=== PATIENT | female | born 2005 | race Two or more races ===

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

== ENCOUNTER 2024-04-14 14:51 | Emergency (ER) | payer OTHER ==
[~2024-04-14] VITALS: Ht 152.4 cm; Wt 99.8 kg
[~2024-04-14 14:51] MED LIST changes: +DUI500 PO
[2024-04-14] MEDS ORDERED: KETOROLAC TROMETHAMINE 30 MG VIAL IM STA (15:39)
[2024-04-14 16:06] LABS: HEMATOCRIT 40.9 % (36.0-45.00); HEMOGLOBIN 13.9 g/dL (12.0-15.00); MEAN CELL VOLUME 72.4 fL (80.00-100.00); MEAN CORPUSCULAR HEMOGLOBIN 24.7 pg (27.00-32.0); MEAN CORPUSCULAR HGB CONC 34.1 g/dl (32.0-36.0); PLATELET COUNT 364 K/uL (150-450); RED BLOOD COUNT 5.66 M/uL (4.00-6.00); RED CELL DISTRIBUTION WIDTH 18.1 % (11.5-14.5)
[2024-04-14 16:26] LABS: ALBUMIN 3.5 gm/dL (3.4-5.0); BILIRUBIN TOTAL 0.28 mg/dL (0.3-1.2); CALCIUM 8.7 mg/dL (8.5-10.1); CREATININE SERUM 0.82 mg/dL (0.55-1.02); GFR 88.88; GLOBULINA 4.5 G/DL (2.4-3.5); POTASSIUM 3.53 mEq/L (3.5-5.1)
== END 2024-04-14 17:57 | disposition home or self-care (01) ==
LOC: ER 14:53 → EMR PED 15:16 → ER 15:16 → EMR PED 17:57
DX: M54.89 Other dorsalgia (principal); Z88.8 Allergy status to other drugs, medicaments and biological substances; Z91.013 Allergy to seafood

== ENCOUNTER 2024-04-25 04:24 | Emergency (ER) | payer OTHER ==
[~2024-04-25] VITALS: Ht 152.4 cm; Wt 99.8 kg
[2024-04-25] MEDS ORDERED: GUAIFENESIN 200 MG/10 ML BLIST.PACK PO STA (05:24)
[2024-04-25] MEDS ORDERED: DIPHENHYDRAMINE HCL 12.5 MG/5 ML BLIST.PACK PO STA (05:24)
[2024-04-25] MEDS ORDERED: ACETAMINOPHEN 500 MG GEL..CAP PO STA (05:24)
[2024-04-25] MEDS ORDERED: ALBUTEROL SULFATE 3 ML/2.5 MG AMPUL.NEB IH SCH (05:30)
[2024-04-25 07:07] LABS: HEMATOCRIT 37.7 % (36.0-45.00); MEAN CELL VOLUME 72.5 fL (80.00-100.00); MEAN CORPUSCULAR HEMOGLOBIN 25.1 pg (27.00-32.0); MEAN CORPUSCULAR HGB CONC 34.6 g/dl (32.0-36.0); PLATELET COUNT 356 K/uL (150-450); RED CELL DISTRIBUTION WIDTH 18.8 % (11.5-14.5)
[2024-04-25] MEDS ORDERED: AMOX-CLAV 875-1 EACH PO (09:41)
[2024-04-25 10:11] VITALS: BP 110/64; O2SAT 96
== END 2024-04-25 10:13 | disposition home or self-care (01) ==
LOC: ER 04:26 → EMR PED 04:33 → ER 04:33 → EMR PED 10:13
PROVIDERS: General Practice
DX: J32.9 Chronic sinusitis, unspecified (principal); Z20.822 Contact with and (suspected) exposure to COVID-19; Z88.8 Allergy status to other drugs, medicaments and biological substances; Z91.013 Allergy to seafood

== ENCOUNTER → 2024-07-09 | Emergency (ER) | payer OTHER ==
[~2024-07-09] VITALS: Ht 152.4 cm; Wt 99.8 kg
[~2024-07-09] MED LIST changes: +AMOX-CLAV 875-1 EACH PO; +CEFTRIAXONE SODIUM 1,000 MG VIAL IV STA; +CEFTRIAXONE SODIUM 1,000 MG VIAL ONE; +CEPHALEXIN500 MG PO; +DEXTROSE 5 %-0.45 % SOD CHLORD 1,000 ML IV STA; +FAMOTIDINE/PF 20 MG/2 ML VIAL ONE; +FAMOtidine 10 MG/ML (4ML VIAL) IV STA; +KETOROLAC TROMETHAMINE 30 MG VIAL IV STA; +KETOROLAC TROMETHAMINE 60 MG VIAL IM ONE; +ONDANSETRON HCL 2 MG/ML VIAL IV STA; +ONDANSETRON HCL 2 MG/ML VIAL ONE; +PYRIDIUM DS200 MG PO
[2024-07-09 19:17] VITALS: BP 117/73; O2SAT 99
[2024-07-09 20:59] LABS: HEMATOCRIT 39.1 % (36.0-45.00); HEMOGLOBIN 13.2 g/dL (12.0-15.00); MEAN CELL VOLUME 74.3 fL (80.00-100.00); MEAN CORPUSCULAR HEMOGLOBIN 25.1 pg (27.00-32.0); MEAN CORPUSCULAR HGB CONC 33.8 g/dl (32.0-36.0); PLATELET COUNT 398 K/uL (150-450); RED BLOOD COUNT 5.26 M/uL (4.00-6.00); RED CELL DISTRIBUTION WIDTH 15.8 % (11.5-14.5)
[2024-07-09 21:03] LABS: ALBUMIN 3.4 gm/dL (3.4-5.0); BILIRUBIN TOTAL 0.34 mg/dL (0.3-1.2); CALCIUM 9.3 mg/dL (8.5-10.1); CREATININE SERUM 0.54 mg/dL (0.55-1.02); GFR 143.93; GLOBULINA 4.6 G/DL (2.4-3.5); POTASSIUM 4.17 mEq/L (3.5-5.1)
[2024-07-10 00:51] LABS: PH,URINE 6.5 (5.0-8.0); URINE APPEARANCE Cloudy; URINE BILIRRUBIN Negative (NEGATIVE); URINE BLOOD Negative; URINE COLOR Yellow; URINE GLUCOSE Negative (NEGATIVE); URINE KETONE Negative (NEGATIVE); URINE LEUKOCYTE Moderate; URINE NITRATE Negative; URINE PROTEIN Negative (NEGATIVE)
[2024-07-10 00:55] LABS: URINE BACTERIA 7614.4 uL (0.0-1933); URINE EPITHELIAL CELLS 124.5 uL (0.0-38.8); URINE RBC 24.8 uL (0.0-20.8); URINE WBC 107.9 uL (0.0-23.2)
[2024-07-10 01:17] LABS: URINE CAST 0.58 uL (0.0-1.40)
== END | disposition home or self-care (01) ==
LOC: EMR PED 19:02 → ER 19:02 → EMR PED 19:25
DX: N39.0 Urinary tract infection, site not specified (principal); Z91.013 Allergy to seafood; Z88.8 Allergy status to other drugs, medicaments and biological substances
CPT/HCPCS: 36415; 76770; 76856; 96365; 96366; 99284; J0696; J2405; J3490; J7070

== ENCOUNTER 2024-07-15 06:07 | Inpatient (IN) | payer OTHER ==
[~2024-07-15] VITALS: Ht 157.5 cm; Wt 100.0 kg
[~2024-07-15 06:07] MED LIST changes: -CEFTRIAXONE SODIUM 1,000 MG VIAL IV STA; -CEFTRIAXONE SODIUM 1,000 MG VIAL ONE; -DEXTROSE 5 %-0.45 % SOD CHLORD 1,000 ML IV STA; -FAMOTIDINE/PF 20 MG/2 ML VIAL ONE; -FAMOtidine 10 MG/ML (4ML VIAL) IV STA; -KETOROLAC TROMETHAMINE 30 MG VIAL IV STA; -KETOROLAC TROMETHAMINE 60 MG VIAL IM ONE; -ONDANSETRON HCL 2 MG/ML VIAL IV STA; -ONDANSETRON HCL 2 MG/ML VIAL ONE
--- NOTE | 2024-07-15 06:25 | NUR ---
PACIENTE ALERTA Y ORIENTADA X 3. REFIERE DESDE AMANDA DOLOR ABDOMINAL, VOMITOS Y DIARREAS. HOY DIARREAS X 5 Y VOMITOS X 6.
[2024-07-15] MEDS ORDERED: ONDANSETRON HCL 2 MG/ML VIAL IV ONE (07:30)
[2024-07-15] MEDS ORDERED: FAMOTIDINE/PF 20 MG/2 ML VIAL IV ONE (07:30)
[2024-07-15] MEDS ORDERED: 0.9 % SODIUM CHLORIDE 500 ML IV ONE (07:30)
[2024-07-15] MEDS ORDERED: ONDANSETRON HCL 2 MG/ML VIAL ONE ×2 (07:59→18:30)
[2024-07-15] MEDS ORDERED: FAMOTIDINE/PF 20 MG/2 ML VIAL ONE ×2 (08:00→18:31)
[2024-07-15 09:00] LABS: HEMATOCRIT 38.2 % (36.0-45.00); HEMOGLOBIN 12.7 g/dL (12.0-15.00); MEAN CELL VOLUME 74.6 fL (80.00-100.00); MEAN CORPUSCULAR HEMOGLOBIN 24.8 pg (27.00-32.0); MEAN CORPUSCULAR HGB CONC 33.3 g/dl (32.0-36.0); PLATELET COUNT 397 K/uL (150-450); RED BLOOD COUNT 5.12 M/uL (4.00-6.00); RED CELL DISTRIBUTION WIDTH 15.4 % (11.5-14.5)
[2024-07-15] MEDS ORDERED: DEXTROSE 5 %-0.45 % SOD CHLORD 1,000 ML IV SCH (09:00)
--- NOTE | 2024-07-15 09:12 | NUR ---
EVALUADA PTE. POR DRA.D. ANNA. SE ORIENTA SOBRE TRATAMIENTO Y MEDICAMENTOS LOS CUALES SE ADM. MAGED ORDEN MEDICA, MUESTRAS TOMADAS Y SE ENVIAN AL LABORATORIO Y SE ZIA PTE. EN GRANT CON BARRANDAS ELEVADAS ACOMPANADA DE FAMILIAR.
[2024-07-15 09:21] LABS: URINE APPEARANCE Clear; URINE BILIRRUBIN Negative (NEGATIVE); URINE BLOOD Small; URINE COLOR Dark Yellow; URINE GLUCOSE Negative (NEGATIVE); URINE KETONE Negative (NEGATIVE); URINE LEUKOCYTE Negative; URINE NITRATE Negative; URINE PROTEIN Negative (NEGATIVE)
[2024-07-15 09:26] LABS: URINE BACTERIA 4063.1 uL (0.0-1933); URINE EPITHELIAL CELLS 84.2 uL (0.0-38.8); URINE RBC 15.7 uL (0.0-20.8); URINE WBC 76.1 uL (0.0-23.2)
[2024-07-15 09:29] LABS: URINE CAST 0.14 uL (0.0-1.40)
[2024-07-15] MEDS ORDERED: CEFTRIAXONE SODIUM 1,000 MG VIAL IV ONE (10:00)
[2024-07-15 10:15] LABS: ALBUMIN 3.1 gm/dL (3.4-5.0); BILIRUBIN TOTAL 0.26 mg/dL (0.3-1.2); CALCIUM 8.7 mg/dL (8.5-10.1); CREATININE SERUM 0.63 mg/dL (0.55-1.02); GFR 120.47; GLOBULINA 4.1 G/DL (2.4-3.5); POTASSIUM 4.11 mEq/L (3.5-5.1); TOTAL PROTEIN 7.2 gm/dL (6.4-8.2)
[2024-07-15] MEDS ORDERED: CEFTRIAXONE SODIUM 1,000 MG VIAL ONE (10:41)
--- NOTE | 2024-07-15 10:48 | NUR ---
DRA. ANNA RE-EVALUA PTE. MEDICAMENTOS ADM. MAGED ORDEN MEDICA Y SE ORIENTA A COGER U/C.
--- NOTE | 2024-07-15 15:20 | NUR ---
PTE ALERTA Y ORIENTADA X 3 ESFERAS SIN ACOMPANANTE AL MOMENTO DE LA VIOLA,EN GRANT CON BARANDAS ELEVADAS QUIEN PRESENTA VOMITOS LUEGO DE PO TRIAL.AREA DE VENOPUNCION PATENTE Y NORBERTO DE EDEMA CON FLUIDOS DE MANTENIMIENTO.
[2024-07-15] MEDS ORDERED: PROMETHAZINE HCL 50 MG/ML AMPUL IM ONE ×2 (16:30→16:33)
[2024-07-15] MEDS ORDERED: FAMOTIDINE/PF 20 MG/2 ML VIAL IV SCH (17:53)
[2024-07-15] MEDS ORDERED: CEFTRIAXONE SODIUM 1,000 MG VIAL IV SCH (17:54)
[2024-07-15] MEDS ORDERED: ONDANSETRON HCL 2 MG/ML VIAL IV SCH (17:55)
--- NOTE | 2024-07-15 17:55 | NUR ---
LUEGO DEL JAIME PO TRIAL PTE VOMITA NUEVAMENTE.
[2024-07-15 20:37] VITALS: BP 140/80
[2024-07-15 22:05] VITALS: BP 94/62; O2SAT 98
[2024-07-15 23:55] VITALS: BP 104/62; O2SAT 97
[2024-07-16 07:30] VITALS: BP 93/59; O2SAT 99
[2024-07-16] MEDS ORDERED: CEFTRIAXONE SODIUM 1,000 MG VIAL IV SCH (09:00)
[2024-07-16 16:54] VITALS: BP 117/70; O2SAT 100
[2024-07-17 00:44] VITALS: BP 93/58; O2SAT 99
[2024-07-17 06:38] LABS: HEMATOCRIT 37.5 % (36.0-45.00); HEMOGLOBIN 12.6 g/dL (12.0-15.00); MEAN CELL VOLUME 75.1 fL (80.00-100.00); MEAN CORPUSCULAR HEMOGLOBIN 25.3 pg (27.00-32.0); MEAN CORPUSCULAR HGB CONC 33.6 g/dl (32.0-36.0); PLATELET COUNT 342 K/uL (150-450); RED BLOOD COUNT 4.99 M/uL (4.00-6.00); RED CELL DISTRIBUTION WIDTH 14.9 % (11.5-14.5)
[2024-07-17 07:29] LABS: BILIRUBIN TOTAL 0.33 mg/dL (0.3-1.2); CALCIUM 8.6 mg/dL (8.5-10.1); CREATININE SERUM 0.64 mg/dL (0.55-1.02); GFR 118.3; GLOBULINA 3.5 G/DL (2.4-3.5); POTASSIUM 4.15 mEq/L (3.5-5.1); TOTAL PROTEIN 6.5 gm/dL (6.4-8.2)
[2024-07-17 07:38] LABS: C-REACTIVE PROTEIN 2.09 MG/DL (0.00-0.29)
[2024-07-17] MEDS ORDERED: PANTOPRAZOLE SODIUM 40 MG/VIAL VIAL IV SCH (09:00)
[2024-07-17 13:01] VITALS: BP 91/69; O2SAT 97
[2024-07-17 16:00] VITALS: BP 103/69; O2SAT 100
[2024-07-18] VITALS: BP 109/55; O2SAT 100
[2024-07-18 11:25] VITALS: BP 107/75; O2SAT 99
[2024-07-18 13:24] LABS: AMYLASE 58 U/L (25-115); LIPASE 37 U/L (13-75)
[2024-07-18 15:30] VITALS: BP 119/70; O2SAT 99
[2024-07-18] MEDS ORDERED: FAMOTIDINE/PF 20 MG/2 ML VIAL IV SCH (17:00)
[2024-07-18] MEDS ORDERED: POLYETHYLENE GLYCOL 3350 17 GM BLIST.PACK PO SCH (21:00)
[2024-07-19] VITALS: BP 116/74; O2SAT 100
[2024-07-19 08:00] VITALS: BP 108/73; O2SAT 100
[2024-07-19 16:00] VITALS: BP 93/51; O2SAT 100
[2024-07-19] MEDS ORDERED: POLYETHYLENE GLYCOL 3350 17 GM BLIST.PACK PO SCH (17:00)
[2024-07-19] MEDS ORDERED: CEFTRIAXONE SODIUM 1,000 MG VIAL IM SCH (21:00)
[2024-07-19] MEDS ORDERED: LIDOCAINE HCL 1% 10ML VIAL IJ ONE (21:00)
[2024-07-20 00:30] VITALS: BP 105/71; O2SAT 100
[2024-07-20] MEDS ORDERED: ACID CONTROLLER20 MG PO (08:28)
[2024-07-20] MEDS ORDERED: PROTONIX40 MG PO (08:29)
== END 2024-07-20 09:01 | disposition home or self-care (01) | DRG 690 ==
LOC: ER 06:10 → EMR PED 06:23 → PED 19:52
PROVIDERS: Emergency Medicine Pediatric Emergency Medicine; ADMIT Emergency Medicine; ATTEND Emergency Medicine
PROC: BW40ZZZ Ultrasonography of Abdomen (ICD-10-PCS; principal; 2024-07-17)
DX: N39.0 Urinary tract infection, site not specified (principal); K29.70 Gastritis, unspecified, without bleeding; K80.20 Calculus of gallbladder without cholecystitis without obstruction; R11.2 Nausea with vomiting, unspecified

== ENCOUNTER 2024-09-06 16:56 | Emergency (ER) | payer OTHER ==
[~2024-09-06] VITALS: Ht 152.4 cm; Wt 101.6 kg
[~2024-09-06 16:56] MED LIST changes: +ACID CONTROLLER20 MG PO; +PROTONIX40 MG PO
[2024-09-06] MEDS ORDERED: FAMOtidine 20 MG TABLET PO STA (17:19)
[2024-09-06] MEDS ORDERED: ONDANSETRON HCL 2 MG/ML VIAL IV STA (17:20)
[2024-09-06] MEDS ORDERED: 0.9 % SODIUM CHLORIDE 1,000 ML IV SCH (17:30)
[2024-09-06 18:44] LABS: HEMATOCRIT 43.1 % (36.0-45.00); HEMOGLOBIN 14.7 g/dL (12.0-15.00); MEAN CELL VOLUME 72.3 fL (80.00-100.00); MEAN CORPUSCULAR HEMOGLOBIN 24.7 pg (27.00-32.0); MEAN CORPUSCULAR HGB CONC 34.1 g/dl (32.0-36.0); PLATELET COUNT 383 K/uL (150-450); RED BLOOD COUNT 5.96 M/uL (4.00-6.00); RED CELL DISTRIBUTION WIDTH 16.7 % (11.5-14.5)
[2024-09-06 19:11] LABS: ALBUMIN 3.8 gm/dL (3.4-5.0); BILIRUBIN TOTAL 0.87 mg/dL (0.3-1.2); CALCIUM 9.3 mg/dL (8.5-10.1); CREATININE SERUM 0.68 mg/dL (0.55-1.02); GFR 110.31; GLOBULINA 4.9 G/DL (2.4-3.5); POTASSIUM 4.1 mEq/L (3.5-5.1); TOTAL PROTEIN 8.7 gm/dL (6.4-8.2)
[2024-09-06 23:26] LABS: PH,URINE 5.5 (5.0-8.0); URINE APPEARANCE Turbid; URINE BILIRRUBIN Small (NEGATIVE); URINE BLOOD Negative; URINE COLOR Orange; URINE GLUCOSE Negative (NEGATIVE); URINE KETONE Trace (NEGATIVE); URINE LEUKOCYTE Trace; URINE NITRATE Negative; URINE PROTEIN Trace (NEGATIVE)
[2024-09-06 23:31] LABS: URINE BACTERIA 3127.3 uL (0.0-1933); URINE EPITHELIAL CELLS 43.2 uL (0.0-38.8); URINE RBC 20.3 uL (0.0-20.8); URINE WBC 19.7 uL (0.0-23.2)
[2024-09-06 23:44] LABS: URINE CAST 0.44 uL (0.0-1.40); URINE CRYSTALS MANY /HPF
== END 2024-09-07 02:45 | disposition home or self-care (01) ==
LOC: ER 16:59 → EMR PED 17:08
DX: K52.89 Other specified noninfective gastroenteritis and colitis (principal); Z20.822 Contact with and (suspected) exposure to COVID-19; Z88.8 Allergy status to other drugs, medicaments and biological substances; Z91.013 Allergy to seafood

== ENCOUNTER → 2025-04-06 | Emergency (ER) | payer OTHER ==
[~2025-04-06] VITALS: Ht 152.4 cm; Wt 99.8 kg
[~2025-04-06] MED LIST changes: +0.9 % SODIUM CHLORIDE 500 ML IV ONE; +CEFTRIAXONE SODIUM 1,000 MG VIAL IM ONE; +CEFTRIAXONE SODIUM 1,000 MG VIAL ONE; +CIPRO500 MG PO; +DOLOGEN 325-11 EACH PO; +FAMOTIDINE/PF 20 MG/2 ML VIAL IV ONE; +FAMOTIDINE/PF 20 MG/2 ML VIAL ONE; +KETOROLAC TROMETHAMINE 30 MG VIAL IV ONE; +KETOROLAC TROMETHAMINE 30 MG VIAL ONE; +ONDANSETRON HCL 2 MG/ML VIAL IV ONE; +ONDANSETRON HCL 2 MG/ML VIAL ONE; +URETRON D-S TAB1 TAB PO
[2025-04-06 23:31] LABS: BASO % 0.5 % (0.1-1.2); EOS # 0.17 (0.04-0.54); EOS % 1.1 % (0.7-7.0); LYMPH # 3.79 (1.18-3.74); LYMPH % 25.1 % (19.3-53.1); MEAN PLATELET VOLUME 10.50 fl (9.4-12.4); MONO # 0.56 (0.24-0.82); MONO % 3.7 % (4.7-12.5); NEUT # 10.46 (1.56-6.13); NEUT % 69.3 % (34.0-71.1); RED CELL DISTRIBUTION WIDTH 15.8 % (11.6-14.4)
[2025-04-06 23:45] LABS: ERYTHROCYTE SEDIMENTATION RATE 30 mm/hr (0-20)
[2025-04-06 23:51] LABS: BUN CREA RATIO 16.0 (7.0-25.0); CREATININE SERUM 0.61 mg/dL (0.55-1.02); GFR 123.81; GLUCOSE FASTING 93.0 mg/dL (65-100); OSMOLALITY SERUM 278.0 MOSM/KG (275-295)
[2025-04-07 00:44] LABS: URINE APPEARANCE Clear; URINE BILIRRUBIN Negative (NEGATIVE); URINE BLOOD Negative; URINE COLOR Yellow; URINE GLUCOSE Negative (NEGATIVE); URINE KETONE Negative (NEGATIVE); URINE LEUKOCYTE Small; URINE NITRATE Negative; URINE PROTEIN Negative (NEGATIVE); URINE UROBILINOGEN 1.0 E.U./dl
[2025-04-07 00:50] LABS: URINE BACTERIA 2582.2 uL (0.0-1933); URINE EPITHELIAL CELLS 66.1 uL (0.0-38.8); URINE RBC 7.0 uL (0.0-20.8); URINE WBC 203.0 uL (0.0-23.2)
[2025-04-07 01:06] LABS: URINE CAST 0.00 uL (0.0-1.40)
== END | disposition home or self-care (01) ==
LOC: ER 17:57
DX: N39.0 Urinary tract infection, site not specified (principal); R10.9 Unspecified abdominal pain; Z88.8 Allergy status to other drugs, medicaments and biological substances; Z91.013 Allergy to seafood

== ENCOUNTER 2025-04-30 09:26 | Emergency (ER) | payer OTHER ==
[~2025-04-30] VITALS: Ht 162.6 cm; Wt 90.7 kg
[~2025-04-30 09:26] MED LIST changes: -0.9 % SODIUM CHLORIDE 500 ML IV ONE; -CEFTRIAXONE SODIUM 1,000 MG VIAL IM ONE; -CEFTRIAXONE SODIUM 1,000 MG VIAL ONE; -FAMOTIDINE/PF 20 MG/2 ML VIAL IV ONE; -FAMOTIDINE/PF 20 MG/2 ML VIAL ONE; -KETOROLAC TROMETHAMINE 30 MG VIAL IV ONE; -KETOROLAC TROMETHAMINE 30 MG VIAL ONE; -ONDANSETRON HCL 2 MG/ML VIAL IV ONE; -ONDANSETRON HCL 2 MG/ML VIAL ONE
[2025-04-30] MEDS ORDERED: ONDANSETRON HCL 2 MG/ML VIAL IV STA ×2 (09:42→14:39)
[2025-04-30] MEDS ORDERED: FAMOTIDINE/PF 20 MG/2 ML VIAL IV PUSH STA (09:42)
[2025-04-30] MEDS ORDERED: MORPHINE SULFATE 2 MG/ML SYRINGE IV STA ×2 (09:42→10:05)
[2025-04-30] MEDS ORDERED: 0.9 % SODIUM CHLORIDE 1,000 ML IV STA (09:45)
[2025-04-30] MEDS ORDERED: TAMSULOSIN HCL 0.4 MG CAP PO STA ×2 (09:45→14:27)
[2025-04-30] MEDS ORDERED: FAMOTIDINE/PF 20 MG/2 ML VIAL ONE (09:46)
[2025-04-30] MEDS ORDERED: ONDANSETRON HCL 2 MG/ML VIAL ONE ×2 (09:46)
[2025-04-30] MEDS ORDERED: TAMSULOSIN HCL 0.4 MG CAP PO ONE (09:46)
[2025-04-30] MEDS ORDERED: KETOROLAC TROMETHAMINE 15 MG VIAL IV STA (10:05)
[2025-04-30] MEDS ORDERED: KETOROLAC TROMETHAMINE 30 MG VIAL ONE (10:08)
[2025-04-30 10:09] LABS: BASO % 0.3 % (0.1-1.2); EOS # 0.12 (0.04-0.54); EOS % 0.9 % (0.7-7.0); LYMPH # 3.59 (1.18-3.74); LYMPH % 27.4 % (19.3-53.1); MEAN PLATELET VOLUME 10.50 fl (9.4-12.4); MONO # 0.53 (0.24-0.82); MONO % 4.0 % (4.7-12.5); NEUT # 8.74 (1.56-6.13); NEUT % 66.9 % (34.0-71.1); RED CELL DISTRIBUTION WIDTH 15.4 % (11.6-14.4)
[2025-04-30 10:44] LABS: ALT/SGPT 12.0 U/L (12-78); AST/SGOT 14.0 U/L (15-37); BILIRUBIN TOTAL 0.38 mg/dL (0.3-1.2); BUN CREA RATIO 14.0 (7.0-25.0); CREATININE SERUM 0.78 mg/dL (0.55-1.02); GFR 93.23; GLOBULINA 4.0 G/DL (2.4-3.5); GLUCOSE FASTING 103.0 mg/dL (65-100); OSMOLALITY SERUM 286.0 MOSM/KG (275-295)
[2025-04-30] MEDS ORDERED: MORPHINE SULFATE 4 MG/ML CARTRIDGE IV STA ×2 (11:22→13:46)
[2025-04-30 11:27] LABS: URINE APPEARANCE Turbid; URINE BILIRRUBIN Small (NEGATIVE); URINE BLOOD Large; URINE COLOR Orange; URINE GLUCOSE Negative (NEGATIVE); URINE KETONE Negative (NEGATIVE); URINE LEUKOCYTE Moderate; URINE NITRATE Negative; URINE UROBILINOGEN 0.2 E.U./dl
[2025-04-30 11:30] LABS: URINE BACTERIA 3023.9 uL (0.0-1933); URINE EPITHELIAL CELLS 74.4 uL (0.0-38.8); URINE WBC 206.1 uL (0.0-23.2)
[2025-04-30 12:09] LABS: URINE CAST 1.17 uL (0.0-1.40); URINE PROTEIN 100 (NEGATIVE); URINE RBC > 10558.9 uL (0.0-20.8)
[2025-04-30] MEDS ORDERED: PROMETHAZINE HCL 50 MG/ML AMPUL IM ONE (12:30)
[2025-04-30] MEDS ORDERED: PROMETHAZINE HCL 50 MG/ML AMPUL IM STA (12:31)
[2025-04-30] MEDS ORDERED: KETOROLAC TROMETHAMINE 30 MG VIAL IM STA (13:52)
[2025-04-30] MEDS ORDERED: KETO10TA2 PO (22:57)
[2025-04-30] MEDS ORDERED: BACTRIM DS TAB1 EACH PO (22:57)
[2025-04-30] MEDS ORDERED: TAMS0.4C PO (22:57)
[2025-04-30] MEDS ORDERED: METOCLOPRAMIDE10 MG PO (22:57)
[2025-04-30] MEDS ORDERED: KETOROLAC TROMETHAMINE 30 MG VIAL IV ONE (23:30)
== END 2025-04-30 23:35 | disposition home or self-care (01) ==
LOC: ER 09:26
PROVIDERS: General Practice
DX: N13.9 Obstructive and reflux uropathy, unspecified (principal); N23 Unspecified renal colic; N39.0 Urinary tract infection, site not specified; Z88.8 Allergy status to other drugs, medicaments and biological substances; Z91.013 Allergy to seafood

== ENCOUNTER 2025-05-17 19:04 | Emergency (ER) | payer OTHER ==
[~2025-05-17] VITALS: Ht 152.4 cm; Wt 99.8 kg
[~2025-05-17 19:04] MED LIST changes: +METOCLOPRAMIDE10 MG PO; +TAMS0.4C PO
[2025-05-17] MEDS ORDERED: KETOROLAC TROMETHAMINE 30 MG VIAL IU ONE (20:15)
[2025-05-17] MEDS ORDERED: ORPHENADRINE CITRATE 30 MG/ML AMPUL IV ONE (20:15)
[2025-05-17] MEDS ORDERED: KETOROLAC TROMETHAMINE 30 MG VIAL ONE (21:26)
[2025-05-17] MEDS ORDERED: ORPHENADRINE CITRATE 30 MG/ML AMPUL ONE (21:26)
[2025-05-18] MEDS ORDERED: KETO10TA2 PO (01:49)
== END 2025-05-18 01:57 | disposition home or self-care (01) ==
LOC: ER 19:04
DX: S99.812A Other specified injuries of left ankle, initial encounter (principal); Z91.013 Allergy to seafood; Z88.8 Allergy status to other drugs, medicaments and biological substances; X50.9XXA Other and unspecified overexertion or strenuous movements or postures, initial encounter; Y93.89 Activity, other specified; Y92.89 Other specified places as the place of occurrence of the external cause

== ENCOUNTER 2025-06-12 18:47 | Emergency (ER) | payer OTHER ==
[~2025-06-12] VITALS: Ht 152.4 cm; Wt 104.3 kg
[2025-06-12] MEDS ORDERED: LACTOBACILLUS ACIDOPHILUS 1 CAP CAP PO ONE ×2 (20:15→21:33)
[2025-06-12] MEDS ORDERED: FAMOTIDINE/PF 20 MG/2 ML VIAL IV ONE (20:15)
[2025-06-12] MEDS ORDERED: 0.9 % SODIUM CHLORIDE 1,000 ML IV SCH (20:15)
[2025-06-12] MEDS ORDERED: ONDANSETRON HCL 2 MG/ML VIAL IV ONE (20:15)
[2025-06-12] MEDS ORDERED: ONDANSETRON HCL 2 MG/ML VIAL ONE ×3 (21:32→21:34)
[2025-06-12] MEDS ORDERED: FAMOTIDINE/PF 20 MG/2 ML VIAL ONE (21:33)
[2025-06-12 22:18] LABS: BASO % 0.4 % (0.1-1.2); EOS # 0.13 (0.04-0.54); EOS % 1.1 % (0.7-7.0); LYMPH # 3.23 (1.18-3.74); LYMPH % 26.9 % (19.3-53.1); MEAN PLATELET VOLUME 10.20 fl (9.4-12.4); MONO # 0.52 (0.24-0.82); MONO % 4.3 % (4.7-12.5); NEUT # 8.03 (1.56-6.13); NEUT % 67.0 % (34.0-71.1); RED CELL DISTRIBUTION WIDTH 15.7 % (11.6-14.4)
[2025-06-12 22:32] LABS: COVID-19 AG NEGATIVE (NEGATIVE)
[2025-06-12 22:36] LABS: ALT/SGPT 14.0 U/L (12-78); AST/SGOT 14.0 U/L (15-37); BILIRUBIN TOTAL 0.23 mg/dL (0.3-1.2); BUN CREA RATIO 13.0 (7.0-25.0); CREATININE SERUM 0.61 mg/dL (0.55-1.02); GFR 123.81; GLOBULINA 4.5 G/DL (2.4-3.5); GLUCOSE FASTING 87.0 mg/dL (65-100); OSMOLALITY SERUM 279.0 MOSM/KG (275-295)
[2025-06-13 00:45] LABS: URINE APPEARANCE Cloudy; URINE BILIRRUBIN Negative (NEGATIVE); URINE BLOOD Negative; URINE COLOR Yellow; URINE GLUCOSE Negative (NEGATIVE); URINE KETONE Negative (NEGATIVE); URINE LEUKOCYTE Moderate; URINE NITRATE Negative; URINE PROTEIN Negative (NEGATIVE); URINE UROBILINOGEN 1.0 E.U./dl
[2025-06-13] MEDS ORDERED: PEPCID40 MG PO (00:45)
[2025-06-13] MEDS ORDERED: INTESTINEX680 M2 PO (00:45)
[2025-06-13] MEDS ORDERED: PROTONIX40 MG PO (00:45)
[2025-06-13 00:49] LABS: URINE RBC 11.7 uL (0.0-20.8); URINE WBC 237.2 uL (0.0-23.2)
[2025-06-13 01:36] LABS: URINE CAST 0.14 uL (0.0-1.40)
[2025-06-13 01:37] LABS: TYPE CELLS SQUAMOUS; URINE EPITHELIAL CELLS > 201.7 uL (0.0-38.8)
== END 2025-06-13 02:05 ==
LOC: ER 18:48
PROVIDERS: Student in an Organized Health Care Education/Training Program
DX: K52.9 Noninfective gastroenteritis and colitis, unspecified (principal); A08.8 Other specified intestinal infections; R10.13 Epigastric pain; R05.8 Other specified cough; R11.2 Nausea with vomiting, unspecified; Z20.822 Contact with and (suspected) exposure to COVID-19; Z88.8 Allergy status to other drugs, medicaments and biological substances; Z91.013 Allergy to seafood